=== PATIENT | female | born 1960 | race Caucasian/White ===

== ENCOUNTER 2023-08-28 13:11 | Emergency (ER) | payer MEDICARE, OTHER ==
[2023-08-28 13:48] VITALS: BP 110/60; O2SAT 100
--- NOTE | 2023-08-28 15:49 | ED Physician Documentation ---
History of Present Illness - Stated complaint Stated Complaint: PAIN MANAGEMENT - Chief complaint Chief Complaint: General - History obtained from History obtained from: Patient - Additonal information Additional information: The patient comes to the emergency department chief complaint of exacerbation of her chronic abdominal pain and being out of her medication. The patient just recently moved here to [facility] the last month and has an appointment coming up with her new primary care physician on September 06. 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 The patient states she has had chronic pain since then and that she has been on [place] 90 tablets every 2 weeks for this. She states that she thought that she could get through to her doctor's appointment but has been in a lot of pain and so went to the walk-in clinic on [facility]. They gave her prescription for tramadol, but the patient states that she ran out of that several days ago and has been having to take extra tablets to try to get the same pain control she had on her [place]. She does not feel sick in any other way but just states that she is hoping to get better pain control before her doctor's appointment. PD PAST MEDICAL HISTORY - Past Medical History Past Medical History: Yes Cardiovascular: None Respiratory: None Neuro: None Endocrine/Autoimmune: HyPOthyroidism GI: None MANAGER SHOP: None : None HEENT: None Psych: Depression, Anxiety Musculoskeletal: None Derm: None - Past Surgical History Past Surgical History: Yes - Present Medications Home Medications: Ambulatory Orders Medication Instructions Recorded Confirmed HYDROcod/ACETAM 5/325 [[place] 5/325] 1 - 2 tablet PO Q6H PRN #40 tablet 08/28/23 - Allergies Allergies/Adverse Reactions: Allergies Allergy/AdvReac Type Severity Reaction Status Date / Time No Known Drug Allergies Allergy Verified 08/28/23 13:16 - Social History Does the pt smoke?: No Smoking Status: Never smoker Does the pt drink ETOH?: No Does the pt have substance abuse?: No - Immunizations Immunizations are current?: Yes PD ED PE NORMAL - Vitals Vital signs reviewed: Yes - General General: Alert and oriented X 3, No acute distress, Well developed/nourished - HEENT HEENT: Atraumatic, EOMI, Moist mucous membranes - Neck Neck: Supple, no meningeal sign - Cardiac Cardiac: RRR, No murmur - Respiratory Respiratory: No respiratory distress, Clear bilaterally - Derm Derm: Warm and dry - Extremities Extremities: No deformity - Neuro Neuro: Alert and oriented X 3 - Psych Psych: Normal mood, Normal affect Results - Vitals Vitals: Vital Signs - 24 hr 08/28/23 13:16 Temperature 36.8 C Heart Rate 72 Respiratory 16 Rate Blood Pressure 110/60 O2 Saturation 100 Oxygen O2 Source Room air PD Medical Decision Making - ED course Complexity details: considered differential, d/w patient ED course: I did agree to give the patient a prescription for pain medication to get her through till her appointment next week. Departure - Departure Disposition: Home, Self Care Clinical Impression: Chronic pain Qualifiers: Chronic pain type: chronic pain syndrome Qualified Code(s): G89.4 - Chronic pain syndrome Condition: Stable Instructions: ED Chronic Pain Management Prescriptions: HYDROcod/ACETAM 5/325 [[place] 5/325] 1 - 2 tablet PO Q6H PRN #40 tablet PRN Reason: Pain Comments: A prescription for your pain medication has been electronically transmitted to the [facility] pharmacy in [place].
== END 2023-08-28 15:57 | disposition home or self-care (01) ==
LOC: ED 13:11
DX: G89.4 Chronic pain syndrome (principal); E03.9 Hypothyroidism, unspecified
CPT/HCPCS: 99282; 99283

== ENCOUNTER 2023-12-18 15:53 | Outpatient (CLI) | payer MEDICARE, OTHER | END 2023-12-18 23:08 | disposition critical access hospital (66) | LOC: EMS 15:53 | DX: R06.02 Shortness of breath (principal); R00.0 Tachycardia, unspecified; R73.9 Hyperglycemia, unspecified; R42 Dizziness and giddiness; R45.89 Other symptoms and signs involving emotional state; R53.1 Weakness; R35.89 Other polyuria; R63.1 Polydipsia; R19.7 Diarrhea, unspecified | CPT/HCPCS: A0425; A0427 ==

== ENCOUNTER 2023-12-18 16:27 | Emergency (ER) | payer MEDICARE, OTHER ==
[2023-12-18 16:39] VITALS: O2SAT 100
[2023-12-18] MEDS: SODIUM CHLORIDE 0.9% 1,000 ML IV STA ×2 (16:47→17:36)
--- NOTE | 2023-12-18 17:03 | ED Physician Documentation ---
History of Present Illness - Stated complaint Stated Complaint: SOA - Chief complaint Chief Complaint: General - History obtained from History obtained from: Patient, EMS - Additonal information Additional information: 63-year-old woman with history of metastatic esophageal cancer treated at [facility]. She is still getting radiation and chemotherapy. She states that starting this morning she has been feeling shaky and weak and short of breath with exertion with some mild chest pressure. She states she is urinating normally if not excessively. Prehospital blood sugar was high. 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 : None HEENT: None Psych: Depression, Anxiety Musculoskeletal: None Derm: None - Past Surgical History Past Surgical History: Yes - Present Medications Home Medications: Ambulatory Orders Medication Instructions Recorded Confirmed HYDROcod/ACETAM 5/325 [[place] 5/325] 1 - 2 tablet PO Q6H PRN #40 tablet 08/28/23 - Allergies Allergies/Adverse Reactions: Allergies Allergy/AdvReac Type Severity Reaction Status Date / Time No Known Drug Allergies Allergy Verified 12/18/23 16:38 - Social History Does the pt smoke?: No Smoking Status: Never smoker Does the pt drink ETOH?: No Does the pt have substance abuse?: No - Immunizations Immunizations are current?: Yes PD ED PE NORMAL - Vitals Vital signs reviewed: Yes (She has an abnormal rapid wide-complex rhythm on the monitor) - General General: Alert and oriented X 3, Other (Appears both acutely and chronically ill) - HEENT HEENT: PERRL, EOMI - Neck Neck: Supple, no meningeal sign, No bony TTP - Cardiac Cardiac: Other (Tachycardic, regular) - Respiratory Respiratory: No respiratory distress, Clear bilaterally - Abdomen Abdomen: Non tender - Extremities Extremities: No edema, No calf tenderness / cord - Neuro Neuro: Alert and oriented X 3, Normal speech Results - Vitals Vitals: Vital Signs - 24 hr 12/18/23 12/18/23 12/18/23 16:34 17:21 18:30 Temperature 36.2 C L Heart Rate 101 H 98 111 H Respiratory 22 16 17 Rate Blood Pressure 103/68 146/75 H O2 Saturation 100 100 Oxygen O2 Source Room air - EKG (time done) 1655 EKG releavant findings:: EKG personally interpreted by author of this note. Relevant findings are: Rate: Rate (enter#) (91) Rhythm: NSR Intervals: Wide QRS 1834 EKG releavant findings:: EKG personally interpreted by author of this note. Relevant findings are: Rate: Rate (enter#) (109) Rhythm: Sinus tachycardia, LAE Ischemia: Non specific changes (Significant improvement in the wide QRS and peaked T waves compared to EKG #1 now that her potassium has somewhat normalized.) - Labs Labs: Laboratory Tests 12/18/23 12/18/23 12/18/23 16:50 16:50 16:50 WBC 17.9 H RBC 3.55 L Hgb 10.4 L Hct 35.4 L MCV 99.7 H MCH 29.3 MCHC 29.4 L RDW 15.9 H Plt Count 246 MPV 9.6 Neut # (Auto) Not Reportable Lymph # (Auto) Not Reportable [place] # (Auto) Not Reportable Eos # (Auto) Not Reportable Baso # (Auto) Not Reportable Absolute Nucleated RBC Not Reportable Total Counted 100 Band Neuts % (Manual) 3 Abnorm Lymph % (Manual) 0 Nucleated RBC % Not Reportable Neutrophils # (Manual) 15.4 H Lymphocytes # (Manual) 1.1 L Monocytes # (Manual) 1.4 H Eosinophils # (Manual) 0.0 Basophils # (Manual) 0.0 Differential Comment MANUAL DIFFERENTIAL Manual Slide Review Indicated WBC Morphology NORMAL APPEARANCE Platelet Estimate NORMAL (130-450,000) Platelet Morphology NORMAL APPEARANCE RBC Morph Micro Appear 2+ SADIE CELLS VBG pH 6.951 L* VBG pCO2 21.1 L VBG pO2 81.9 H VBG HCO3 4.5 L VBG Total CO2 5.2 L VBG O2 Saturation 93.9 H VBG Base Excess -26.1 L Sodium 119 L* Potassium 8.1 H* Chloride 86 L Carbon Dioxide 4 L* Anion Gap 29.0 H BUN 41 H Creatinine 2.1 H Estimated GFR (MDRD) 24 L Glucose 1461 H* Calcium 9.0 Phosphorus 9.0 H Magnesium 2.5 H Total Bilirubin 0.3 AST 60 H ALT 32 Alkaline Phosphatase 179 H Troponin I High Sens Total Protein 6.8 Albumin 4.3 Globulin 2.5 Albumin/Globulin Ratio 1.7 Lipase 110 H Serum Ketones MODERATE H 12/18/23 12/18/23 12/18/23 16:50 18:03 19:05 WBC RBC Hgb Hct MCV MCH MCHC RDW Plt Count MPV Neut # (Auto) Lymph # (Auto) [place] # (Auto) Eos # (Auto) Baso # (Auto) Absolute Nucleated RBC Total Counted Band Neuts % (Manual) Abnorm Lymph % (Manual) Nucleated RBC % Neutrophils # (Manual) Lymphocytes # (Manual) Monocytes # (Manual) Eosinophils # (Manual) Basophils # (Manual) Differential Comment Manual Slide Review WBC Morphology Platelet Estimate Platelet Morphology RBC Morph Micro Appear VBG pH 7.072 L* VBG pCO2 28.7 L VBG pO2 38.1 VBG HCO3 8.2 L VBG Total CO2 9.0 L VBG O2 Saturation 75.4 VBG Base Excess -20.5 L Sodium 123 L Potassium 5.9 H Chloride 92 L Carbon Dioxide 6 L* Anion Gap 25.0 H BUN 40 H Creatinine 2.0 H Estimated GFR (MDRD) 25 L Glucose 1254 H* Calcium 9.7 Phosphorus Magnesium Total Bilirubin AST ALT Alkaline Phosphatase Troponin I High Sens 53.4 H* Total Protein Albumin Globulin Albumin/Globulin Ratio Lipase Serum Ketones PD Medical Decision Making - ED course ED course: 63-year-old woman presents with nonspecific symptoms in the setting of end-stage metastatic esophageal cancer still undergoing treatment. She has a wide-complex tachycardia on the monitor and subsequently EKG to my eye is most consistent with severe hyperkalemia with near sine wave EKG. I discussed CODE STATUS with her. Initially she was telling me she was full code but then when describing the rate of resuscitation successful in the setting of stage IV cancer she wanted to think about it. In the meantime we will start treatment for likely profound hyperkalemia with calcium, insulin (no need for glucose as it is "high.") Albuterol and saline. She does have a port and we will access it. She has a peripheral IV in place as well. After the above treatments her rhythm on the monitor improved with her complex narrowing and I added on an insulin drip after her glucose was resulted at 1461 and a bicarb drip. I talked to the pharmacist and there is no way to make a bicarb drip without the D5. She was presented to the [facility] at approximately 5:50 PM for potential transfer. They note they are very full and may not be able to take the patient. At 7 PM I presented the case to Dr. Norman Mccarty, intensive care fellow at the [facility] and he accepts pending bed availability. In the interim her labs have somewhat improved with potassium down to 5.9, resolution of wide QRS on EKG, and improvement in blood sugar. Subsequently we called [facility] as well as it did not seem like the [facility] was rapidly getting a bed ready and she was excepted at 7:[address] De Souza to their ICU. Shortly after that [facility] Called back and were able to take her. Patient wanting to go to [facility] so [facility] was canceled. - Critical Care Time(min): 95 Time Includes: Direct patient care, Review records, Reassess patient, Document care, Coordinate care, Medical consult, Family consult for tx dec (Conversations with both sons) Data interpretation: Labs, Pulse ox Procedures included in critical care time: Peripheral IV Procedures excluded from critical care time: EKG Departure - Departure Disposition: 02 Transfer Acute Care Hosp Clinical Impression: HHS (hypothenar hammer syndrome), DKA (diabetic ketoacidosis), Hyperkalemia, Acidosis Condition: Critical Forms: PCP List
[2023-12-18 17:06] LABS: BASOPHILS % (AUTO) 0.3 %; EOSINOPHILS % (AUTO) 0.1 %; HCT - HEMATOCRIT 35.4 % (37.0-47.0); HGB - HEMOGLOBIN 10.4 g/dL (12.0-16.0); LYMPHOCYTES % (AUTO) 9.3 %; MEAN CORPUSCULAR HEMOGLOBIN 29.3 pg (27.0-31.0); MEAN CORPUSCULAR HGB CONC 29.4 g/dL (32.0-36.0); MEAN CORPUSCULAR VOLUME 99.7 fL (81.0-99.0); MEAN PLATELET VOLUME 9.6 fL (7.9-10.8); MONOCYTES % (AUTO) 9.3 %; NEUTROPHILS % (AUTO) 80.1 %; PLT - PLATELET COUNT 246 10^3/uL (130-450); RED BLOOD COUNT 3.55 10^6/uL (4.20-5.40); RED CELL DISTRIBUTION WIDTH 15.9 % (12.0-15.0); WHITE BLOOD COUNT 17.9 x10^3/uL (4.8-10.8)
[2023-12-18] MEDS: ALBUTEROL NEB 2.5 MG/3 ML INH STA (17:09)
[2023-12-18 17:10] LABS: KETONES, SERUM (ACETEST) MODERATE (NEGATIVE)
[2023-12-18 17:13] LABS: SLIDE REVIEW? Indicated
[2023-12-18 17:15] LABS: ABNORMAL LYMPHS % (MANUAL) 0 %
[2023-12-18] MEDS: INSULIN REGULAR HUMAN 300 UNIT/3 ML VIAL IVP STA (17:15)
[2023-12-18] MEDS: CALCIUM CHLORIDE ABBOJECT 1000MG/10 ML SYRINGE IVP STA (17:17)
[2023-12-18 17:18] LABS: MAGNESIUM 2.5 mg/dL (1.7-2.3); VBG HCO3 4.5 mmol/L (23-28); VBG PCO2 21.1 mmHg (41-51); VBG PO2 81.9 mmHg (25-47)
[2023-12-18 17:19] LABS: VBG BASE EXCESS -26.1 mmol/L (-2 - +2); VBG OXYGEN SATURATION 93.9 % (60-80); VBG TOTAL CO2 5.2 mmol/L (24-29)
[2023-12-18 17:22] LABS: VBG PH 6.951 (7.31-7.41)
[2023-12-18 17:23] LABS: ALBUMIN 4.3 g/dL (3.2-5.5); BILIRUBIN,TOTAL 0.3 mg/dL (0.2-1.0); CARBON DIOXIDE - CO2 4 mmol/L (21-32); CHLORIDE 86 mmol/L (101-111); POTASSIUM 8.1 mmol/L (3.5-4.5); SODIUM 119 mmol/L (135-145)
[2023-12-18 17:24] LABS: LIPASE 110 U/L (11-82)
[2023-12-18 17:33] LABS: ALBUMIN/GLOBULIN RATIO 1.7 (1.0-2.2); ALKALINE PHOSPHATASE 179 IU/L (42-121); ALT ALANINE AMINOTRANSFERASE 32 IU/L (10-60); AST ASPARTATE AMINOTRANSFERASE 60 IU/L (10-42); BUN - BLOOD UREA NITROGEN 41 mg/dL (6-20); CREATININE 2.1 mg/dL (0.6-1.3); GFR - MDRD 24 (>89); TOTAL PROTEIN 6.8 g/dL (6.4-8.9)
[2023-12-18 17:44] LABS: BAND NEUTROPHILS % (MANUAL) 3 %; LYMPHOCYTES # (MANUAL) 1.1 10^3/uL (1.5-3.5); LYMPHOCYTES % (MANUAL) 6 %; MONOCYTES # (MANUAL) 1.4 10^3/uL (0.0-1.0); NEUTROPHILS # (MANUAL) 15.4 10^3/uL (1.5-6.6)
[2023-12-18] MEDS: INSULIN REGULAR IN 0.9 % NS 100 UNIT/100 ML BAG IV STA (17:46)
[2023-12-18 17:49] LABS: DIFFERENTIAL COMMENT MANUAL DIFFERENTIAL; GLUCOSE 1461 mg/dL (74-104); PLATELET ESTIMATE, MANUAL NORMAL (130-450,000) (NORMAL); PLATELET MORPHOLOGY NORMAL APPEARANCE (NORMAL); WBC MORPHOLOGY (MULTIPLE) NORMAL APPEARANCE (NORMAL)
[2023-12-18] MEDS: SODIUM BICARBONATE 150 MEQ in DEXTROSE 5% 1,000 ML IV SCH (17:56)
[2023-12-18] MEDS: SODIUM ZIRCONIUM CYCLOSILICATE 5 GM PACKET PO STA (18:08)
[2023-12-18 18:38] LABS: CALCIUM 9.7 mg/dL (8.5-10.3); POTASSIUM 5.9 mmol/L (3.5-4.5)
[2023-12-18 19:12] LABS: VBG HCO3 8.2 mmol/L (23-28); VBG PCO2 28.7 mmHg (41-51); VBG PO2 38.1 mmHg (25-47)
[2023-12-18 19:13] LABS: VBG BASE EXCESS -20.5 mmol/L (-2 - +2); VBG OXYGEN SATURATION 75.4 % (60-80)
[2023-12-18 19:15] LABS: VBG PH 7.072 (7.31-7.41)
--- NOTE | 2023-12-18 19:18 | XRAY Report ---
PROCEDURE: Chest 1V INDICATIONS: dyspnea TECHNIQUE: One view of the chest was acquired. COMPARISON: None. FINDINGS: Surgical changes and devices: A right-sided chest port is seen. Lungs and pleura: No pleural effusions or pneumothorax. Lungs are clear. Mediastinum: Mediastinal contours appear normal. Heart size is normal. Bones and chest wall: No suspicious bony lesions. Overlying soft tissues appear unremarkable. IMPRESSION: No acute cardiopulmonary process. Reviewed by: Dillon Faye MD on 12/18/2023 6:16 PM [facility] Approved by: Dillon Faye MD on 12/18/2023 6:16 PM AKDT Station ID: [id number]
[2023-12-18 20:08] LABS: BILIRUBIN,URINE NEGATIVE (NEGATIVE); GLUCOSE, URINE (UA) >=1000 mg/dL (NEGATIVE); KETONES,URINE (UA) 40 mg/dL (NEGATIVE); LEUKOCYTE ESTERASE, URINE NEGATIVE (NEGATIVE); NITRITE,URINE NEGATIVE (NEGATIVE); OCCULT BLOOD,URINE MODERATE (NEGATIVE); PH,URINE 5.5 PH (5.0-7.5); PROTEIN,URINE TRACE mg/dL (NEGATIVE); UROBILINOGEN,URINE 0.2 (NORMAL) E.U./dL (NORMAL)
[2023-12-18 20:24] LABS: CLARITY,URINE CLEAR (CLEAR)
[2023-12-18 20:25] LABS: BACTERIA,URINE Few /HPF (None Seen); EPITHELIAL CELLS,UR FEW Transitional /HPF (<= Few); RBC,URINE 0-5 /HPF (0-5); SQUAMOUS EPITHELIAL CELL,UR MOD Squamous (<= Few); WBC CLUMPS,URINE PRESENT
[2023-12-18 20:50] VITALS: BP 137/94
== END 2023-12-18 20:42 | disposition short-term general hospital (02) ==
LOC: EDUNIT# → ED 16:27
DX: E11.00 Type 2 diabetes mellitus with hyperosmolarity without nonketotic hyperglycemic-hyperosmolar coma (NKHHC) (principal); E11.10 Type 2 diabetes mellitus with ketoacidosis without coma; E87.5 Hyperkalemia; E03.9 Hypothyroidism, unspecified
CPT/HCPCS: 36415; 71045; 80048; 80053; 81001; 82009; 82803; 83690; 83735; 84100; 84484; 85025; 93005; 94640; 96361; 96374; 96375; 99291; 99292; J1815; 81003; 87086

== ENCOUNTER 2024-01-01 22:12 | Emergency (ER) | payer MEDICARE, OTHER ==
[2024-01-01 22:25] VITALS: BP 136/64; O2SAT 99
[2024-01-01 22:47] LABS: BASOPHILS # (AUTO) 0.1 10^3/uL (0.0-0.1); BASOPHILS % (AUTO) 0.9 %; EOSINOPHILS # (AUTO) 0.1 10^3/uL (0.0-0.7); EOSINOPHILS % (AUTO) 0.9 %; HCT - HEMATOCRIT 31.6 % (37.0-47.0); HGB - HEMOGLOBIN 9.9 g/dL (12.0-16.0); LYMPHOCYTES # (AUTO) 2.4 10^3/uL (1.5-3.5); LYMPHOCYTES % (AUTO) 27.7 %; MEAN CORPUSCULAR HGB CONC 31.3 g/dL (32.0-36.0); MEAN CORPUSCULAR VOLUME 92.7 fL (81.0-99.0); MEAN PLATELET VOLUME 8.6 fL (7.9-10.8); MONOCYTES # (AUTO) 0.9 10^3/uL (0.0-1.0); MONOCYTES % (AUTO) 10.5 %; NEUTROPHILS # (AUTO) 5.1 10^3/uL (1.5-6.6); PLT - PLATELET COUNT 323 10^3/uL (130-450); RED BLOOD COUNT 3.41 10^6/uL (4.20-5.40); RED CELL DISTRIBUTION WIDTH 17.3 % (12.0-15.0); WHITE BLOOD COUNT 8.7 x10^3/uL (4.8-10.8)
[2024-01-01] MEDS: SODIUM CHLORIDE 0.9% 1,000 ML IV STA (22:55)
[2024-01-01 23:05] LABS: ALBUMIN 3.9 g/dL (3.2-5.5); ALBUMIN/GLOBULIN RATIO 1.4 (1.0-2.2); BILIRUBIN,TOTAL 0.4 mg/dL (0.2-1.0); CALCIUM 9.3 mg/dL (8.5-10.3); CREATININE 0.9 mg/dL (0.6-1.3); TOTAL PROTEIN 6.7 g/dL (6.4-8.9)
--- NOTE | 2024-01-01 23:44 | ED Physician Documentation ---
History of Present Illness - Stated complaint Stated Complaint: HIGH SUGAR LEVELS - Chief complaint Chief Complaint: General - History obtained from History obtained from: Patient - Additonal information Additional information: The patient comes to the emergency department chief complaint of elevated blood sugar and "brain fog". The patient states that she was just recently diagnosed with diabetes a couple of weeks ago after starting immunotherapy for esophageal cancer. She states her oncologist told her that it is only a small percentage of people on immunotherapy that end up getting diabetes, but it is irreversible. The patient was discovered to have a blood sugar 1400 and spent some time in the hospital when the diagnosis was first made. The patient has been on both Lantus and regular insulin, which she is taking on a sliding scale basis. The patient states that normally, her blood sugars have been running from the mid 100s to the upper 200s with occasional deep drops after taking her sliding scale insulin. However, she began to notice this afternoon that her blood sugars were creeping up. She does state that she had had 4 wrist crackers and 2 vamsi crackers and wonders if this was the cause. She took her sliding scale insulin as usual and did not eat dinner but her blood sugars remain in the 400-500s. Patient states she just felt a little "foggy" with regard to her mental processes and that she is also been extra tired. She is supposed to have immunotherapy tomorrow but she states she does not think she will go because she is just not feeling up to it and she also wants to take a break from the immunotherapy because of the diabetes issue. No other complaints at this time. She has not been ill with anything recently. 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 : None HEENT: None Psych: Depression, Anxiety Musculoskeletal: None Derm: None Other Past Medical History: esophageal CA - Past Surgical History Past Surgical History: Yes /ACCOUNTING MANAGER ASSISTANT CONTROLLER: Hysterectomy - Present Medications Home Medications: Ambulatory Orders Medication Instructions Recorded Confirmed HYDROcod/ACETAM 5/325 [[place] 5/325] 1 - 2 tablet PO Q6H PRN #40 tablet 08/28/23 - Allergies Allergies/Adverse Reactions: Allergies Allergy/AdvReac Type Severity Reaction Status Date / Time No Known Drug Allergies Allergy Verified 12/18/23 16:38 - Social History Does the pt smoke?: No Smoking Status: Never smoker Does the pt drink ETOH?: No Does the pt have substance abuse?: No - Immunizations Immunizations are current?: Yes - POLST Patient has POLST: No PD ED PE NORMAL - Vitals Vital signs reviewed: Yes - General General: Alert and oriented X 3, No acute distress - HEENT HEENT: Atraumatic, EOMI, Moist mucous membranes - Neck Neck: Supple, no meningeal sign - Cardiac Cardiac: RRR, No murmur - Respiratory Respiratory: No respiratory distress, Clear bilaterally - Abdomen Abdomen: Soft, Non tender, Non distended - Derm Derm: Normal color, Warm and dry, No rash - Extremities Extremities: No deformity - Neuro 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 2-12 intact, Other (Grossly intact) - Psych Psych: Normal mood, Normal affect Results - Vitals Vitals: Vital Signs - 24 hr 01/01/24 22:14 Temperature 36.5 C Heart Rate 106 H Respiratory 18 Rate Blood Pressure 136/64 H O2 Saturation 99 Oxygen O2 Source Room air - Labs Labs: Laboratory Tests 01/01/24 01/01/24 01/01/24 22:42 22:42 23:28 WBC 8.7 RBC 3.41 L Hgb 9.9 L Hct 31.6 L MCV 92.7 MCH 29.0 MCHC 31.3 L RDW 17.3 H Plt Count 323 MPV 8.6 Neut # (Auto) 5.1 Lymph # (Auto) 2.4 [place] # (Auto) 0.9 Eos # (Auto) 0.1 Baso # (Auto) 0.1 Absolute Nucleated RBC 0.00 Nucleated RBC % 0.0 Sodium 128 L Potassium 4.0 Chloride 97 L Carbon Dioxide 26 Anion Gap 5.0 L BUN 21 H Creatinine 0.9 Estimated GFR (MDRD) 63 L Glucose 233 H POC Whole Bld Glucose 190 H Calcium 9.3 Total Bilirubin 0.4 AST 70 H ALT 58 Alkaline Phosphatase 144 H Total Protein 6.7 Albumin 3.9 Globulin 2.8 Albumin/Globulin Ratio 1.4 Lipase 21 PD Medical Decision Making - ED course Complexity details: reviewed results, re-evaluated patient, considered differential, d/w patient ED course: The patient was worked up with laboratory studies in the emergency department and given a liter 0.9 normal saline. The patient's initial blood sugar on labs was found to be 233 and an hour later on fingerstick glucose was found to be 190. The remainder of the patient's labs were unremarkable. I discussed with the patient that I would not take any more extra insulin because her sugars continuing to fall and also, because patient has not eaten any dinner tonight. I have discussed with the patient's son the patient should have a substantial meal and take her Lantus for the night. She will need to follow closely with her primary doctor and her oncologist to determine best outpatient management for her new onset diabetes. We have discussed the usual indications for return. Departure - Departure Disposition: Home, Self Care Clinical Impression: Hyperglycemia due to diabetes mellitus, Hyponatremia Condition: Stable Instructions: ED Hyperglycemia Diabetic, ED Hyponatremia Comments: Your blood sugar here was only 230 and repeat check found to be 190. If you are going to take your long-acting insulin tonight, it is probably best that you have some food that we will stick with you a little bit to prevent yourself from dropping too low. Your sodium was a little bit low in your blood but we have replenished this with sodium containing IV fluids. Please continue to work with your doctors to get your diabetes under better control. If you feel like your machine is consistently giving you high numbers without good reason for your blood sugar to be high, you can call the customer service line associated with the machine and asked them how you can recalibrate the machine to make sure that it is giving you accurate readings. Please otherwise make the next available appointment with your doctor to follow-up on your sugars. Forms: PCP List Discharge Date/Time: 01/01/24 23:49
== END 2024-01-01 23:49 | disposition home or self-care (01) ==
LOC: ED 22:12
DX: E11.65 Type 2 diabetes mellitus with hyperglycemia (principal); Z79.4 Long term (current) use of insulin; C15.9 Malignant neoplasm of esophagus, unspecified; Z79.60 Long term (current) use of unspecified immunomodulators and immunosuppressants; E87.1 Hypo-osmolality and hyponatremia; E03.9 Hypothyroidism, unspecified
CPT/HCPCS: 36415; 80053; 83690; 85025; 99283; 99284

== ENCOUNTER 2024-02-16 15:12 | Emergency (ER) | payer MEDICARE, OTHER ==
[2024-02-16] MEDS: AMOX/CLAV 875 MG/125 MG TABLET PO STA (18:16)
--- NOTE | 2024-02-16 18:34 | ED Physician Documentation ---
PD HPI SKIN - Stated complaint Stated Complaint: RT HAND DOG BITE - Chief complaint Chief Complaint: Laceration - Additional information Additional information: 63-year-old female with type 1 diabetes, hypothyroidism, depression, anxiety presents emergency department for right hand lacerations. Patient is visiting his son and his dog has food aggression and patient went to grab food and got bit onto her right hand. She has full range of motion there is a deep laceration over the volar aspect of the hand around the thumb region not crossing over the MCP. There is a smaller laceration on the ulnar aspect of the hand bleeding is well-controlled although there is some mild oozing that continues patient is on blood thinners she is up-to-date with her tetanus shot. 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: Hysterectomy - Present Medications Home Medications: Ambulatory Orders Medication Instructions Recorded Confirmed HYDROcod/ACETAM 5/325 [[place] 5/325] 1 - 2 tablet PO Q6H PRN #40 tablet 08/28/23 Amox/Clav 875/125 [Augmentin 1 tablet PO Q12H 10 Days #20 tablet 02/16/24 875/125 Tab] - Allergies Allergies/Adverse Reactions: Allergies Allergy/AdvReac Type Severity Reaction Status Date / Time No Known Drug Allergies Allergy Verified 02/16/24 15:27 - Social History Does the pt smoke?: No Smoking Status: Never smoker Does the pt drink ETOH?: No Does the pt have substance abuse?: No - Immunizations Immunizations are current?: Yes - POLST Patient has POLST: No PD ED PE NORMAL - Vitals Vital signs reviewed: Yes - General General: Alert and oriented X 3, No acute distress, Well developed/nourished - Derm Derm: Other (Large deep laceration to the right hand measuring about 4 cm in length.) - Extremities Extremities: No deformity, No edema Results - Vitals Vitals: Vital Signs - 24 hr 02/16/24 02/16/24 15:27 19:37 Temperature 37.0 C Heart Rate 78 72 Respiratory 16 14 Rate Blood Pressure 125/66 126/72 O2 Saturation 100 99 Oxygen O2 Source Room air Procedures - Laceration (location) Right hand laceration Length in cm: 4 (Laceration at the volar aspect of the hand near the radial aspect just below the thumb not crossing MCP joint.) Wound type: Linear, Into subcut fat, Clean Neurovascular status: Sensory intact, Motor intact, Vascular intact Tendon involvement: Tendon intact Anesthesia: Lidocaine 2% with epi Wound preparation: Irrigated copiously NS, To the base Skin layer closure: Nylon, Interrupted, Size #-0 - enter number (5-0), Sutures - enter # (1) Other: Patient tolerated well, No complications, Neurovascular intact, Dressing applied, Tetanus UTD PD Medical Decision Making - ED course ED course: Wound inspected under direct bright light with good visualization. Area with linear laceration across soft tissue through adipose with exposure of muscle belly or tendonBut no muscle or tendon lacerations. No overt foreign body. Area hemostatic. Neurovascular exam congruent with above. Area extensively irrigated with sterile normal saline under pressure. Laceration repaired in simple fashion With only 1 suture so that the wound could still be open because dog bite injuries are high risk for infection. (please see procedure note for further details). Patient tolerated procedure well and neurovascular exam intact and unchanged post repair with intact distal pulses and cap refill. Cautious return precautions discussed w/ full understanding. Wound care discussed. Prompt follow up with primary care physician discussed and return for suture removal in 10 days. Patient started on Augmentin here in the emergency department Augmentin prescription sent to her preferred pharmacy. All questions answered patient safe for discharge at this time. Departure - Departure Disposition: 01 Home, Self Care Clinical Impression: Dog bite of hand Qualifiers: Encounter type: initial encounter Laterality: right Qualified Code(s): S61.451A - Open bite of right hand, initial encounter Instructions: ED Laceration All, ED Laceration Hand Prescriptions: Amox/Clav 875/125 [Augmentin 875/125 Tab] 1 tablet PO Q12H 10 Days #20 tablet Comments: Come back for any signs of infection which would include: Redness, swelling, drainage, increased pain, or fevers. You can wash it soap and water. Keep it covered and moist with bacitracin ointment which is available over the counter; avoid neosporin. Follow-up with your physician in 8-10 days for suture removal. Forms: PCP List Discharge Date/Time: 02/16/24 19:37
[2024-02-16] MEDS: LIDOCAINE 1%-EPI 1:100000 10 ML MDV TD STA (18:35)
[2024-02-16] MEDS: LIDOCAINE 2%-EPI 1:100000 20 ML MDV SUBQ STA (18:36)
[2024-02-16] MEDS: BACITRACIN ZINC OINT 1 PACKET TOP STA (19:36)
[2024-02-16 19:43] VITALS: BP 126/72; O2SAT 99
== END 2024-02-16 19:37 | disposition home or self-care (01) ==
LOC: ED 15:12
DX: S61.411A Laceration without foreign body of right hand, initial encounter (principal); W54.0XXA Bitten by dog, initial encounter; E10.9 Type 1 diabetes mellitus without complications; E03.9 Hypothyroidism, unspecified
CPT/HCPCS: 12002; 99283; A9270

== ENCOUNTER 2024-03-28 14:20 | Emergency (ER) | payer MEDICARE, OTHER ==
[2024-03-28 14:35] VITALS: O2SAT 100
[2024-03-28 14:55] LABS: BASOPHILS % (AUTO) 0.2 %; EOSINOPHILS # (AUTO) 0.3 10^3/uL (0.0-0.7); EOSINOPHILS % (AUTO) 5.9 %; HCT - HEMATOCRIT 32.8 % (37.0-47.0); HGB - HEMOGLOBIN 9.6 g/dL (12.0-16.0); LYMPHOCYTES # (AUTO) 0.4 10^3/uL (1.5-3.5); LYMPHOCYTES % (AUTO) 8.3 %; MEAN CORPUSCULAR HEMOGLOBIN 26.2 pg (27.0-31.0); MEAN CORPUSCULAR HGB CONC 29.3 g/dL (32.0-36.0); MEAN CORPUSCULAR VOLUME 89.6 fL (81.0-99.0); MEAN PLATELET VOLUME 8.3 fL (7.9-10.8); MONOCYTES # (AUTO) 0.3 10^3/uL (0.0-1.0); MONOCYTES % (AUTO) 5.5 %; NEUTROPHILS # (AUTO) 3.8 10^3/uL (1.5-6.6); NEUTROPHILS % (AUTO) 79.7 %; PLT - PLATELET COUNT 232 10^3/uL (130-450); RED BLOOD COUNT 3.66 10^6/uL (4.20-5.40); RED CELL DISTRIBUTION WIDTH 14.9 % (12.0-15.0); WHITE BLOOD COUNT 4.7 x10^3/uL (4.8-10.8)
[2024-03-28 15:12] LABS: ALBUMIN 3.9 g/dL (3.2-5.5); ALBUMIN/GLOBULIN RATIO 1.3 (1.0-2.2); ALKALINE PHOSPHATASE 121 IU/L (42-121); ALT ALANINE AMINOTRANSFERASE 17 IU/L (10-60); AST ASPARTATE AMINOTRANSFERASE 27 IU/L (10-42); BILIRUBIN,TOTAL 0.3 mg/dL (0.2-1.0); BUN - BLOOD UREA NITROGEN 15 mg/dL (6-20); CALCIUM 9.4 mg/dL (8.5-10.3); CARBON DIOXIDE - CO2 26 mmol/L (21-32); CHLORIDE 94 mmol/L (101-111); CREATININE 0.8 mg/dL (0.6-1.3); GFR - MDRD 72 (>89); GLUCOSE 212 mg/dL (74-104); POTASSIUM 3.6 mmol/L (3.5-4.5); SODIUM 128 mmol/L (135-145)
[2024-03-28 15:22] LABS: LIPASE < 10 U/L (11-82)
[2024-03-28] MEDS: SODIUM CHLORIDE 0.9% 1,000 ML IV STA (16:04)
[2024-03-28 16:13] LABS: BILIRUBIN,URINE NEGATIVE (NEGATIVE); GLUCOSE, URINE (UA) >=1000 mg/dL (NEGATIVE); KETONES,URINE (UA) NEGATIVE (NEGATIVE); LEUKOCYTE ESTERASE, URINE TRACE (NEGATIVE); NITRITE,URINE NEGATIVE (NEGATIVE); OCCULT BLOOD,URINE MODERATE (NEGATIVE); PROTEIN,URINE NEGATIVE (NEGATIVE); UROBILINOGEN,URINE 0.2 (NORMAL) E.U./dL (NORMAL)
[2024-03-28 16:15] LABS: CLARITY,URINE CLEAR (CLEAR)
[2024-03-28 16:22] LABS: RBC,URINE 0-5 /HPF (0-5)
[2024-03-28 16:23] LABS: BACTERIA,URINE None Seen /HPF (None Seen); SQUAMOUS EPITHELIAL CELL,UR FEW Squamous (<= Few)
--- NOTE | 2024-03-28 17:30 | ED Physician Documentation ---
History of Present Illness - Stated complaint Stated Complaint: HIGH BS,DEHYDRATED,GEN WEAKNESS - Chief complaint Chief Complaint: General - Additonal information Additional information: Patient is a 63-year-old female presenting to the emergency department with elevated blood sugar readings. She notes she recently was started on insulin a few weeks ago after being diagnosed with diabetes as a complication of her cancer and chemotherapy treatment. Patient has been controlling insulin herself and monitoring blood sugars blood sugars have been staying closer to the 200s but her goal ranges 100-1 50s. Patient notes she feels lightheaded but no nausea vomiting abdominal pain or excessive urination. Patient is also currently receiving chemotherapy treatment and was on the way to her chemo therapist office to have it disconnected. It was started last Sunday and she was scheduled to get the access today. She notes her blood sugars were not decreasing so she decided to come to the emergency department [place] going to her oncologist in [facility]. Patient denies any fevers chills at this time. PD PAST MEDICAL HISTORY - Past Medical History Cardiovascular: None Respiratory: None Neuro: None Endocrine/Autoimmune: Type 2 diabetes, HyPOthyroidism GI: Other [employer]: None : None HEENT: None Psych: Depression, Anxiety Musculoskeletal: None Derm: None Other Past Medical History: esophageal ca - Past Surgical History Past Surgical History: Yes /[employer]: Hysterectomy - Present Medications Home Medications: Ambulatory Orders Medication Instructions Recorded Confirmed HYDROcod/ACETAM 5/325 [[place] 5/325] 1 - 2 tablet PO Q6H PRN #40 tablet 08/28/23 Amox/Clav 875/125 [Augmentin 1 tablet PO Q12H 10 Days #20 tablet 02/16/24 875/125 Tab] cephALEXin [Keflex] 500 mg PO BID #10 cap 03/28/24 - Allergies Allergies/Adverse Reactions: Allergies Allergy/AdvReac Type Severity Reaction Status Date / Time No Known Drug Allergies Allergy Verified 03/28/24 14:31 - Social History Does the pt smoke?: No Smoking Status: Never smoker Does the pt drink ETOH?: No Does the pt have substance abuse?: No - Immunizations Immunizations are current?: Yes - POLST Patient has POLST: No PD ED PE NORMAL - Vitals Vital signs reviewed: Yes - General General: Alert and oriented X 3 - HEENT HEENT: Atraumatic, PERRL - Neck Neck: Supple, no meningeal sign - Cardiac Cardiac: RRR, No murmur, No gallop, No rub - Respiratory Respiratory: No respiratory distress - Abdomen Abdomen: Normal bowel sounds, Soft, Non tender, Non distended - Female Female : Deferred - Rectal Rectal: Deferred - Back Back: No CVA TTP - Derm Derm: Normal color, No rash - Extremities Extremities: No deformity - Neuro Neuro: Alert and oriented X 3 Eye Opening: Spontaneous Motor: Obeys Commands Verbal: Oriented GCS Score: 15 - Psych Psych: Normal mood Results - Vitals Vitals: Vital Signs - 24 hr 03/28/24 03/28/24 03/28/24 14:24 15:17 19:13 Temperature 36.4 C L 37.4 C Heart Rate 94 76 81 Respiratory 16 13 16 Rate Blood Pressure 115/59 L 109/62 O2 Saturation 100 100 100 Oxygen O2 Source Room air - Labs Labs: Laboratory Tests 03/28/24 03/28/24 03/28/24 14:51 14:51 15:12 WBC 4.7 L RBC 3.66 L Hgb 9.6 L Hct 32.8 L MCV 89.6 MCH 26.2 L MCHC 29.3 L RDW 14.9 Plt Count 232 MPV 8.3 Neut # (Auto) 3.8 Lymph # (Auto) 0.4 L [place] # (Auto) 0.3 Eos # (Auto) 0.3 Baso # (Auto) 0.0 Absolute Nucleated RBC 0.00 Nucleated RBC % 0.0 Sodium 128 L Potassium 3.6 Chloride 94 L Carbon Dioxide 26 Anion Gap 8.0 BUN 15 Creatinine 0.8 Estimated GFR (MDRD) 72 L Glucose 212 H POC Whole Bld Glucose 215 H Calcium 9.4 Total Bilirubin 0.3 AST 27 ALT 17 Alkaline Phosphatase 121 Total Protein 7.0 Albumin 3.9 Globulin 3.1 Albumin/Globulin Ratio 1.3 Lipase < 10 L Urine Color Urine Clarity Urine pH Ur Specific [place] Urine Protein Urine Glucose (UA) Urine Ketones Urine Occult Blood Urine Nitrite Urine Bilirubin Urine Urobilinogen Ur Leukocyte Esterase Urine RBC Urine WBC Ur Squamous Epith Cells Urine Bacteria Ur Microscopic Review Urine Culture Comments 03/28/24 03/28/24 16:04 19:08 WBC RBC Hgb Hct MCV MCH MCHC RDW Plt Count MPV Neut # (Auto) Lymph # (Auto) [place] # (Auto) Eos # (Auto) Baso # (Auto) Absolute Nucleated RBC Nucleated RBC % Sodium Potassium Chloride Carbon Dioxide Anion Gap BUN Creatinine Estimated GFR (MDRD) Glucose POC Whole Bld Glucose 190 H Calcium Total Bilirubin AST ALT Alkaline Phosphatase Total Protein Albumin Globulin Albumin/Globulin Ratio Lipase Urine Color YELLOW Urine Clarity CLEAR Urine pH 6.0 Ur Specific [place] 1.010 Urine Protein NEGATIVE Urine Glucose (UA) >=1000 H Urine Ketones NEGATIVE Urine Occult Blood MODERATE H Urine Nitrite NEGATIVE Urine Bilirubin NEGATIVE Urine Urobilinogen 0.2 (NORMAL) Ur Leukocyte Esterase TRACE H Urine RBC 0-5 Urine WBC 4-5 Ur Squamous Epith Cells FEW Squamous Urine Bacteria None Seen Ur Microscopic Review INDICATED Urine Culture Comments INDICATED PD Medical Decision Making - ED course Complexity details: reviewed old records, reviewed results ED course: Patient is a 63-year-old female presenting to the emergency department with elevated blood sugar readings in the 240s at home. She notes she was unable to get these down despite taking 2 doses of insulin short acting 6 units prior to coming to the emergency department she took these about an hour apart this morning before coming in. She was recently diagnosed diabetic and is currently on insulin secondary to history of esophageal cancer with metastases and following with oncology in [facility]. Patient is currently undergoing chemotherapy treatment she has an infusion running through her port at this time she was supposed to go to her oncologist today to have it removed but came here due to elevated blood sugars. She denies any nausea vomiting no abdominal pain she ate breakfast and lunch today and try to use corrective dosing with her insulin without success. She tries to keep her blood sugars in the 100s to 175's. She denies any polyuria or polydypsia. Basic labs were obtained here does appear to show leukopenia however this is consistent with patient undergoing chemotherapy and being immunocompromised at this time CMP shows no significant anion gap mild hyponatremia but this is not significant change given elevated blood sugar and corrective sodium level is 131. Mild anemia noted however this appears stable compared to previous labs.UA does show 5 leukocytes in the urine with positive leukocyte esterase there are squamous cells as well however given immunocompromise state we will start patient on antibiotics. Patient was given 500 cc of fluid as blood sugar did decrease on my evaluation patient to the 170s after she was brought back from triage. Discussed with patient reassuring workup she is safe for discharge home instructed the patient on strict return precautions her port for chemotherapy was deaccessed with specialized nursing staff that was called in after hours here in the emergency department. Patient instructed to take antibiotics as prescribed return with any fevers nausea vomiting persistently elevated blood sugars over 300s worsening urinary symptoms or significant polyuria or polydipsia. Patient understands and is agreeable with this plan will follow-up with her oncologist in the outpatient setting. Departure - Departure Disposition: 01 Home, Self Care Clinical Impression: Hyperglycemia, Hyperglycemia due to diabetes mellitus, Glucose found in urine on examination, UTI (urinary tract infection), Immunocompromised Condition: Good Prescriptions: cephALEXin [Keflex] 500 mg PO BID #10 cap Comments: You were seen here in the emergency department for your symptoms of elevated blood sugars and feeling off your sugars were monitored here you were given IV fluids and felt significantly better. Urine was obtained possible concern for UTI we will prophylactically treat with antibiotics until cultures returned if you develop any fevers abdominal pain low back pain return to the emergency department follow-up with your oncologist in outpatient setting we did disconnect your chemotherapy here in emergency department with our specialized nursing staff. If you develop any other new or worsening symptoms return to emergency department. Forms: PCP List
[2024-03-28 19:23] VITALS: BP 109/62
[2024-03-28] MEDS: cephALEXin 250 MG CAPSULE PO STA (19:27)
== END 2024-03-28 19:55 | disposition home or self-care (01) ==
LOC: ED 14:20
DX: E11.65 Type 2 diabetes mellitus with hyperglycemia (principal); C15.9 Malignant neoplasm of esophagus, unspecified; D84.81 Immunodeficiency due to conditions classified elsewhere; Z79.60 Long term (current) use of unspecified immunomodulators and immunosuppressants; Z79.4 Long term (current) use of insulin; N39.0 Urinary tract infection, site not specified; E03.9 Hypothyroidism, unspecified
CPT/HCPCS: 36415; 80053; 81001; 83690; 85025; 87086; 96360; 99283; A9270; 81003; 84484

== ENCOUNTER 2024-04-10 08:00 | Outpatient (CLI) | payer MEDICARE, OTHER ==
[2024-04-10 20:10] LABS: BILIRUBIN,URINE NEGATIVE (NEGATIVE); GLUCOSE, URINE (UA) 500 mg/dL (NEGATIVE); KETONES,URINE (UA) NEGATIVE (NEGATIVE); LEUKOCYTE ESTERASE, URINE NEGATIVE (NEGATIVE); NITRITE,URINE NEGATIVE (NEGATIVE); OCCULT BLOOD,URINE NEGATIVE (NEGATIVE); PROTEIN,URINE NEGATIVE (NEGATIVE); UROBILINOGEN,URINE 0.2 (NORMAL) E.U./dL (NORMAL)
[2024-04-10 20:16] LABS: CLARITY,URINE CLEAR (CLEAR)
[2024-04-10 20:23] LABS: RBC,URINE None Seen /HPF (0-5); WBC,URINE 0-3 /HPF (0-5)
[2024-04-10 20:24] LABS: BACTERIA,URINE None Seen /HPF (None Seen); SQUAMOUS EPITHELIAL CELL,UR RARE Squamous (<= Few)
== END 2024-04-10 23:59 | disposition home or self-care (01) ==
LOC: LAB.F 08:00
PROVIDERS: ATTEND Nurse Practitioner Gerontology
DX: N39.0 Urinary tract infection, site not specified (principal)
CPT/HCPCS: 81001

== ENCOUNTER 2024-04-11 08:00 | Outpatient (CLI) | payer MEDICARE, OTHER | END 2024-04-11 23:59 | disposition home or self-care (01) | LOC: LAB.F 08:00 | PROVIDERS: ATTEND Nurse Practitioner Gerontology | DX: G89.29 Other chronic pain (principal) | CPT/HCPCS: 80307; G0480; 80361; 81599 ==